=== PATIENT | female | born 1975 | race African-American/Black ===

== ENCOUNTER 2021-03-11 13:24 | Emergency (ER) | payer MEDICAID ==
[~2021-03-11] VITALS: Ht 167.6 cm; Wt 65.0 kg
[2021-03-11 13:28] VITALS: BP 150/80
[2021-03-11] MEDS ORDERED: HYDR12.54 PO (13:31)
[2021-03-11] MEDS ORDERED: PREDNISONE 20MG TABLET PO ONE (13:45)
[2021-03-11] MEDS ORDERED: LIDOCAINE HCL 1% 20ML VIAL (Pyxis) INJ INFIL ONE (15:30)
[2021-03-11] MEDS ORDERED: CEFTRIAXONE SODIUM 1 G/VIAL IM ONE (15:30)
[2021-03-11] MEDS ORDERED: AMOX-424 MT ×2 (16:10)
[2021-03-11] MEDS ORDERED: P20 MT (16:10)
[2021-03-11] MEDS ORDERED: AZIT250T12 MT (16:42)
== END 2021-03-11 16:59 | disposition home or self-care (01) ==
LOC: ER 13:41
DX: U07.1 COVID-19 (principal); R00.0 Tachycardia, unspecified; J45.909 Unspecified asthma, uncomplicated
CPT/HCPCS: 71045; 93005; 96372; 99283; J0696; J3490; J7512